=== PATIENT | female | born 1990 | race Caucasian/White ===

== ENCOUNTER 2021-02-24 14:01 | Emergency (ER) | payer MEDICAID, OTHER ==
[~2021-02-24] VITALS: Ht 167.6 cm; Wt 100.0 kg
[~2021-02-24 14:01] MED LIST: ALBU05 IH; ONDA4TAB5 PO; XAR15 PO
[2021-02-24 14:16] VITALS: BP 133/74
[2021-02-24 15:57] LABS: BASOPHILS % 0.7 % (0.0-2.0); EOSINOPHILS % 0.8 % (0.0-5.0); HEMATOCRIT. 33.9 % (36.0-48.0); HEMOGLOBIN. 10.5 g/dL (12.0-16.0); LYMPHOCYTES % 33.7 % (20.0-50.0); MEAN CORPUSCULAR HEMOGLOBIN 24.4 pg (28.0-32.0); MEAN CORPUSCULAR VOLUME 78.8 fL (81.0-99.0); NEUTROPHILS % 59.8 % (40.0-76.0); PLATELET 242 x1000/uL (130-400); RED CELL DISTRIBUTION WIDTH 16.5 % (11.6-14.6)
[2021-02-24 16:05] LABS: CHLORIDE 110 mEq/L (98-107)
[2021-02-24 16:14] LABS: HCG SCREEN NEGATIVE
== END 2021-02-24 17:46 | disposition home or self-care (01) ==
LOC: ER 14:01
DX: N93.8 Other specified abnormal uterine and vaginal bleeding (principal); J45.909 Unspecified asthma, uncomplicated; Z88.0 Allergy status to penicillin; Z79.899 Other long term (current) drug therapy; Z86.718 Personal history of other venous thrombosis and embolism; Z79.01 Long term (current) use of anticoagulants
CPT/HCPCS: 36415; 80053; 84703; 85025; 99283; Z7610

== ENCOUNTER 2022-05-24 16:03 | Emergency (ER) | payer MEDICAID ==
[~2022-05-24] VITALS: Ht 167.6 cm; Wt 114.0 kg
[2022-05-24] MEDS ORDERED: MEDR150D9 IM (16:22)
[2022-05-24] MEDS ORDERED: SODIUM CHLORIDE 0.9% 1,000 ML IV ONE (23:15)
[2022-05-24] MEDS ORDERED: ONDANSETRON HCL 4MG/2ML INJ IV ONE (23:15)
[2022-05-24 23:42] LABS: BASOPHILS % 0.8 % (0.0-2.0); EOSINOPHILS % 0.7 % (0.0-5.0); HEMATOCRIT. 36.4 % (36.0-48.0); HEMOGLOBIN. 11.4 g/dL (12.0-16.0); LYMPHOCYTES % 29.5 % (20.0-50.0); MEAN CORPUSCULAR HEMOGLOBIN 25.4 pg (28.0-32.0); MEAN CORPUSCULAR VOLUME 80.9 fL (81.0-99.0); MEAN PLATELET VOLUME 9.5 fl (7.4-10.4); MONOCYTES % 6.4 % (2.0-8.0); NEUTROPHILS % 62.6 % (40.0-76.0); PLATELET 246 x1000/uL (130-400); RED CELL DISTRIBUTION WIDTH 16.1 % (11.6-14.6)
[2022-05-24 23:45] LABS: CHLORIDE 109 mEq/L (98-107)
[2022-05-24 23:50] LABS: HCG SCREEN NEGATIVE
[2022-05-24 23:53] LABS: ETHANOL BLOOD < 10 mg/dL
[2022-05-25 00:15] LABS: CLARITY URINE CLOUDY (CLEAR); COLOR URINE YELLOW (YELLOW); KETONES URINE NEGATIVE (NEGATIVE); LEUKOCYTE ESTERASE URINE TRACE (NEGATIVE); NITRITE URINE NEGATIVE (NEGATIVE); OCCULT BLOOD URINE NEGATIVE (NEGATIVE); PH URINE 5.5 (4.5-8.0); PROTEIN URINE NEGATIVE (NEGATIVE); SPECIFIC GRAVITY URINE 1.024 (1.005-1.030); UROBILINOGEN URINE 0.2 E.U./dL (0.2-1.0)
[2022-05-25] MEDS ORDERED: ONDANSETRON 4MG ODT PO ONE (00:15)
[2022-05-25] MEDS ORDERED: ONDA4TAB50 MT (00:32)
[2022-05-25 00:33] LABS: *AMPHETAMINES SCREEN URINE NEGATIVE (NEGATIVE); *BARBITURATES SCREEN URINE NEGATIVE (NEGATIVE); *BENZODIAZEPINES SCREEN URINE NEGATIVE (NEGATIVE); *COCAINE SCREEN URINE NEGATIVE (NEGATIVE); CANNABINOID URINE SCREEN NEGATIVE (NEGATIVE); METHADONE URINE SCREEN NEGATIVE (NEGATIVE); OPIATES URINE SCREEN NEGATIVE (NEGATIVE); PHENCYCLIDINE URINE SCREEN NEGATIVE (NEGATIVE)
[2022-05-25 00:47] VITALS: BP 143/78
== END 2022-05-25 00:49 | disposition home or self-care (01) ==
LOC: ER 16:03
DX: R11.0 Nausea (principal); R07.89 Other chest pain; J45.909 Unspecified asthma, uncomplicated; Z88.0 Allergy status to penicillin; Z79.899 Other long term (current) drug therapy
CPT/HCPCS: 36415; 71045; 80053; 80320; 81025; 83690; 83880; 84703; 85025; 85379; 93005; 99285; J7030; Q0162; 80305; 81001; G0480

== ENCOUNTER 2024-06-01 20:23 | Emergency (ER) | payer MEDICAID ==
[~2024-06-01 20:23] MED LIST changes: +MEDR150D9 IM; +ONDA4TAB50 MT
[2024-06-01 20:45] VITALS: PULSE 114; O2SAT 100
== END 2024-06-02 00:38 | disposition left against medical advice (07) ==
LOC: ER 20:23
DX: R11.0 Nausea (principal); Z53.21 Procedure and treatment not carried out due to patient leaving prior to being seen by health care provider